=== PATIENT | male | born 1945 | race Caucasian/White ===

== ENCOUNTER 2018-08-14 14:42 | Inpatient (IN) | payer OTHER ==
[~2018-08-14] VITALS: Ht 180.3 cm; Wt 70.3 kg
[~2018-08-14 14:42] MED LIST: ACETAMINOPHEN325 M1 PO; ASPIRIN81 M2 PO; CARAFATE 1 GM TA1 GM PO; FLOMAX0.4 MG PO; LIPITOR 20 MG T20 M1 PO; MULTIVITAMINS1 EAC7 PO; NICOTINE TRANSD21 M1 TRANSDERM; NORVASC10 MG PO; PERCOCET 7.5-31 EACH PO; PROTONIX40 M1 PO; PROZAC20 MG PO; VITAMIN B-1100 M1 PO; ZOFRAN ODT4 MG PO
--- NOTE | 2018-08-14 19:09 | NUR ---
PT ARRIVES TO FLOOR VIA CART ACCOMPNIED BY AMBULANCE STAFF FROM [facility]. PER REPORT FROM NURSING STAFF PT HAS BEEN ON MED SURGICAL UNIT AT [facility] SINCE July FOR ACUTE ETOH DETOX-DOES HAVE REPORTED HX OF HTN-BP ELEVATED UPON ADMIT AT [id number] R-16 TEMP 98.4. GAIT IS STEADY WITHOUT ASSISTVE DEVICES. COMPLIENT AND COOPERATIVE DURING INITAL VS AND SIGNING OF CONSENTS. ABLE TO GIVE RELEVENT HX AND IS ORIENTED X4. DOES APPEAR UNKEMPT-HAIR UNCOMBED AND SOILED HOSPITAL GOWN. DENIES SI/SH/HI. NONOTED OR REPORTED PSYCHOSIS,ACUTE ANXIETY. STATES HE IS BECOMING MORE "HOPELESS" THAT HE WILL EVER BE ABLE TO QUIT DRINKING. STATES IS SUPPORTIVE AND HE WILL CELEBRATE 50TH FRIDING ANNIVERSARY THIS YEAR.ORIENTED TO ROOM AND UNIT-BELONGINGS INVENTORIED AND CONSENTS SIGNED-REPORT GIVEN TO UNCOMING SHIFT
--- NOTE | 2018-08-14 20:52 | NUR ---
ASSUMED CARE @ 1900, AMBULATES AD SALVADOR BETWEEN DAY ROOM AND BEDROOM. WANTS TO TALK TO , ASSISTED WITH PLACING THE CALL, GOT ANSWERING MACHINE. PATIENT SECURITY CODE AND OUR PHONE NUMBER LEFT FOR . ORDERS OBTAINED.
--- NOTE | 2018-08-14 23:35 | NUR ---
ASSESSMENT COMPLETE WITH PT COOPERATION. WORKING A CROSSWORD PUZZLE. A&OX3-4. HRRR, LUNGS DIMINISHED, ABD NORMOACTIVE. REPORTS GOOD APPETITE, AND BM YESTERDAY ON 08/13. DENIES SI AND HI. REPORTS THAT HAS FEELING OF HOPELESSNESS ABOUT BEING ABLE TO QUIT ALCOHOL USE. HS MEDS PROVIDED INCLUDING TYLENOL 650 FOR GENERAL AND BACK PAIN OF 05/03. FOLLOWUP PAIN ASSESSMENT 04/05, ONLY SLIGHT RELIEF NOTED. WILL CONTINUE TO MONITOR.
--- NOTE | 2018-08-15 06:18 | NUR ---
TRAZODONE HCL 25 MG PO GIVEN @ 23:00 FOR INSOMNIA, AND OLANZAPINE 2.5 MG PO FOR AGITATION Q4 HOUR. WAS NOT ABLE TO SLEEP, DOING WORD PUZZLES IN THE DAY ROOM. @ 00:15 PT REQUESTED TRAZODONE 25 MG X1 SECOND DOSE IF NOT ASLEEP, WHICH WAS PROVIDED. PT DECLINED OXYCODONE7.5 /325, SAYING THAT HE WAS WORRIED ABOUT ADICTION TO OXY. SAID THAT HE GOT A BIT OF RELIEF FROM THE TYLENOL. PS 3/10 REDUCED TO 2/10. BACK AND GENERAL PAIN REPORTED. WILL CONTINUE TO MONITOR Q12 MINUTES FOR PATIENT SAFETY.
[2018-08-15 08:00] VITALS: BP 130/78
--- NOTE | 2018-08-15 09:00 | NUR ---
PT UP AD SALVADOR TODAY IN DINNING ROOM. PT DENIES ANY HEADACHE OR TREMORS. PT DENIES ANY NAUSEA. TOLERATED BREAKFAST. PT SOCIAL. HARD OF HEARING DUE TO WORKING ON [employer] FOR 37 YEARS. PT HAS SMOKED CIG. FOR 55 YEARS 2 PACKS. PT STATED HE ONLY STARTED DRINKING 3 YEARS AGO. NO RESP ISSUES.
[2018-08-15 14:49] VITALS: BP 130/78
--- NOTE | 2018-08-15 16:00 | NUR ---
CAME TO SEE PT. BROUGHT CLOTHES FOR HIM TO WEAR. PT PLEASANT TODAY. TAKING PO MEDS WITHOUT ISSUES. PT UP AD SALVADOR WITH STEADY GAIT.
[2018-08-15 20:08] VITALS: BP 105/68
[2018-08-15 23:25] VITALS: BP 105/68
--- NOTE | 2018-08-16 00:26 | NUR ---
PATIENT CAME OUT TO NURSE STATION TONMAHNAZ AND STATES HE CAN'T SLEEP. TRAZADONE 25MG PRN GIVEN FOR SLEEPLESSNESS. MAY GIVE HIM THE OTHER 25MG TRAZADONE IN ONE HOUR IF NEEDED FOR SLEEP. NO OTHER COMPLAINTS. WILL CONTINUE TO MONITOR.
[2018-08-16 08:30] VITALS: BP 122/80
--- NOTE | 2018-08-16 09:30 | NUR ---
PT UP THIS AM FINISHED BREAKFAST. PT DENIES ANY PAIN. PT SHOWERED YESTERDAY. PT DOESN'T ENGAGE IN CONVERSATION WITH ANYONE UNLESS SPOKEN TOO. PT VERY COOROPERATIVE AND COMPLIANT.
--- NOTE | 2018-08-16 17:44 | NUR ---
NO COMPLAINTS TODAY, ATTENDING GROUP AND TAKING PO MEDS.
[2018-08-16 19:39] VITALS: BP 148/88
[2018-08-17 01:59] VITALS: BP 148/88
--- NOTE | 2018-08-17 02:19 | NUR ---
PATIENT WAS IN DAYROOM WHEN THIS NURSE CAME ON SHIFT. HIS ASSESSMENT WAS WNL EXCEPT THAT HE IS CONCERNED ABOUT SLEEPING AT NIGHT AND ALSO HIS BOWELS HAVE NOT MOVED FOR NOW 4 DAYS. REASSURED PATIENT THAT I WOULD GIVE HIM 1/2 A TRAZADONE WITH HIS HS MEDS TO HELP WITH SLEEP AND HE COULD HAVE THE OTHER 1/2 IF IT WASN'T EFFECTIVE. BOWEL SOUNDS HYPOACTIVE AND ABDOMEN FIRM. PATIENT GIVEN 2 PRUNE JUICES TO DRINK AND WATER. PT UP WALKING THE UNIT AROUND 2200. NEW ORDERS RECEIVED WHEN I SPOKE WITH ROSALIE ELLIS MILL TENDER SECOND OPERATOR WHEN SHE CALLED THE UNIT. SENNA PLUS 1 BID AND MIRALAX Q 12HR PRN CONSTIPATION. PATIENT SLEEPING AT THIS TIME SO WILL START IN THE MORNING. PATIENT ALSO ENDED UP TAKING BOTH 1/2 DOSES OF TRAZADONE FOR SLEEP.
[2018-08-17 07:58] VITALS: BP 113/78
--- NOTE | 2018-08-17 16:30 | NUR ---
PATIENT ALERT AND ORIENTED AND COOPERTIVE WITH TREATMENT PLAN AND PARTICIPATES IN GROUP THERAPY. PATIENT IS UP AD SALVADOR.
[2018-08-17 20:07] VITALS: BP 108/72
--- NOTE | 2018-08-18 00:18 | NUR ---
NURSES NOTE - ASSUMED CARE AT 1900, UPON ASSESSMENT PATIENT IN DAY ROOM INTERACTING WITH A SELECT GROUP OF PEERS. APPEARS WITH A FLAT AFFECT, BUT BRIGHTENED WHEN INTERVIEWED BY THIS NURSE. HE DENIES SI HI WELL ANXIETY AND DEPRESSION AT TIME OF ASSESSMENT. HE SHOWS NO S/S OF WITHDRAWAL, BUT WILL MONITOR CLOSELY. AT THIS TIME HE IS CURRENTLY IN BED WITH EYES CLOSED RR EVEN AND UNLABORED. NO S/S OF PAIN. WILL CONTINUE TO MONITOR AND MAINTAIN ALL PRECAUTIONS TO ENSURE SAFETY AT ALL TIMES.
[2018-08-18 08:17] VITALS: BP 117/71
--- NOTE | 2018-08-18 10:56 | NUR ---
[id number]: Report rec from [facility] shift, care assumed. Ambulatory in halls and to DR, oriented to name, place and time. Denies pain or discomfort, skin w/d, color pink.Takes meds w/o difficulty, feeds self, appetite good, consumed 100% of meal.
[2018-08-18 20:14] VITALS: BP 132/67
--- NOTE | 2018-08-18 23:28 | NUR ---
NURSES NOTE - ASSUMED CARE AT 1900. PATIENT IS ALERT AND ORIENTED X4 IN THE DAY ROOM PLAYING A CROSSWORK MINIMALLY INTERACTING WITH OTHER PEERS. THIS NURSE SAT DOWN WITH PATIENT AND HAD A ONE TO ONE LONG CONVERSATION WITH PATIENT. HE REPORTS TO THIS NURSE 'IM FEELING GOOD.' HE DENIES ANY FEELINGS OF WITHDRAWAL AND REPORTS 'IM NOT FEELING DEPRESSED ANYMORE NOW THAT IM OFF OF THE BOOZE.' HE REPORTS WHAT THE PHYSICIAN TOLD HIM THIS AFTERNOON REGARDING REHAB OR NOT. HE STATES 'I WAS GOING TO THINK ABOUT REHAB, BUT THEN THE DOCTOR SAID IT COULD BE RELATED TO MEMORY LOSS AND REHAB MAY DO NO GOOD.' HIS SPEACH IS LINEAR AND GOAL ORIENTED IN CONVERSATION. HE REPORTS GOOD SLEEP DUE TO NEW MEDICATION REGIMEN OF TRAZODONE X2 STATING 'I HAVENT SLEEP THAT GOOD IN AGES.' HE ALSO RECOUNTS THE FEW MEMORIES HE HAD WHEN HE ENDED UP AT [facility] AND THE REGRET HE HAS. HE WILL NOT OVERTLY STATE HE WOULD LIKE TO DISCHARGE, BUT IN ACTIONS AND TONE OF VOICE HE IS LOOKING FORWARD TO DISCHARGE. THIS NURSE AND PATIENT DISCUSSED THE DANGERS OF RELAPSE AND ENSURING HE HAS SYSTEMS IN PLACE TO HELP HIM WHICH HE AGREED. HE DENIES SI HI WELL HALLUCINATIONS STATING 'HECK NO I HAVE NEVER HAD HALLUCINATIONS.' WILL CONTINUE TO MONITOR MOOD, BX, AND S/S OF WITHDRAWAL. NURSING WILL MAINTAIN ALL PRECAUTIONS TO ENSURE SAFETY AT ALL TIMES.
[2018-08-19 08:00] VITALS: BP 126/74
--- NOTE | 2018-08-19 09:30 | NUR ---
PT UP AT THIS TIME. PT STATED HE SLEPT GOOD. PT LUNGS CLEAR AND ON ROOM AIR. PT STATED HE WOULD LIKE A SHOWER TODAY. PT HS NO SIGNS OF TREMORS OR HEADACHE. PT DENIES ANY PAIN. PT COMPLIANT WITH MEDS.
--- NOTE | 2018-08-19 10:00 | NUR ---
PT STATED HE WOULD LIKE TO GET HIS TESTING DONE IN ORDER TO BE ABLE TO GO HOME.
--- NOTE | 2018-08-20 04:58 | NUR ---
PT RESTING GOOD, CONTINENT OF B/B, NO BM PASSED, TOOK MEDS WITH NO ISSUES, VERY QUIET LAST NOC WATCHING THE TV, HE WAS THE LAST ONE WHO WENT TO BED, MONITORED.
[2018-08-20 08:11] VITALS: BP 108/65
--- NOTE | 2018-08-20 14:14 | NUR ---
ASSUMED PT CARE AT 0700. PT AWAKE AND READY FOR BREAKFAST. FLAT AFFECT, ATTENDING ALL GROUPS. AMBULATES SELF IN [place]. VSS. WILL CONT POC.
[2018-08-20 19:29] VITALS: BP 125/79
--- NOTE | 2018-08-21 01:14 | NUR ---
NURSES NOTE - ASSUMED CARE AT 1900, PATIENT IS ALERT AND ORIENTED X4, HE WALKS WITH A STEADY GAIT, HE IS CALM AND COOPERATIVE, FOLLOWS DIRECTIONS WHEN ASKED. HE HAS BEEN UP IN THE DAY ROOM INTERACTING WITH OTHERS, BUT MINIMALLY. ONE TO ONE HE MAKES HIS NEEDS KNOWN. HE CONTINUES TO REPORT TO THIS NURSE THAT HE IS LESS DEPRESSED SINCE QUITTING ETOH. HE DENIES SI HI WELL HALLUCINATIONS. HE DENIES MEDICAL CONCERNS WITH NO S/S OF DISTRESS. LAST BM WAS T-1. NURSING WILL MAINTAIN PRECAUTIONS TO ENSURE SAFETY AT ALL TIMES.
[2018-08-21 07:07] LABS: HEMATOCRIT 38.6 % (42.0-52.0); MCH 32.1 pg (26.0-34.0); MCHC 33.6 g/dL (28.0-37.0); MCV 95.6 fL (80.0-100.0); RBC 4.04 mil/uL (4.50-6.00); RDW 19.1 % (10.5-14.5); WBC 5.4 thou/uL (4.0-11.0)
[2018-08-21 07:12] LABS: CALCIUM 8.9 mg/dL (8.5-10.1); POTASSIUM 4.1 mmol/L (3.5-5.1)
--- NOTE | 2018-08-21 08:00 | NUR ---
0730: Report rec from noc shift, care assumed. Ambulatory in halls and to DR, gait steady, oriented to name, place and time. Mood is cheerful, cooperative with staff, sits quietly watching TV.
[2018-08-21 08:47] VITALS: BP 123/83
[2018-08-21] MEDS ORDERED: SENNA-TIME S T1 EACH PO (09:22)
[2018-08-21] MEDS ORDERED: REMERON15 MG PO (09:22)
[2018-08-21] MEDS ORDERED: CARAFATE 1 GM TA1 G1 PO (09:24)
--- NOTE | 2018-08-21 11:50 | NUR ---
PSYCHOSOCIAL ASSESSMENT Diagnosis: MAJOR NEUROCOGNITIVE D/O, ETOH Admit Date: 08/14/18 Psychiatrist: ELAINE Symptoms associated with current admission: Activity level change Alcohol/drug use Presenting problems: Pt stated that he had drunk alcohol, and was not able to wake up for 8 days. Pt stated that he dealing with Depression. Precipitating Factors: Non-compliance psychothx Alcohol/drug use Comments: Pt stated that he like the way alcohol make him feels. History of High Risk Behavors: Other Suicide Risk Factors: E A-Signs of alcohol/substance abuse w/ suicide ideation B-Recent suicidal thoughts or attempts C-Recent thoughts or attempts of harming someone else D-Altered mental status due to psychiatric/chem dep etiology E-The behavior exists - add comment PSYCHIATRIC HISTORY Age of onset: 73 Prior hospitalizations: Denies hx hospitalization Hospital names and dates, if available: Most Recent Outpatient HX: Counselor/Case Management Additional information: Legal Status: Voluntary Guardian/Conservatorship type: Contact name: Contact phone: Other: Name: Phone: Other legal issues: (Arrests/convictions Current Status) Pt was arrested for Unlawful use of Firearm P.O. Name and Phone #: FAMILY HISTORY Place of : [place], [place] Raised in: [place] # Siblings & order: pt had on brother, oldest Describe relationships within family of origin: Pt stated that he was close with his brother. Pt mention that he loss his brother in due to cancer. Pt mention that he was unable to cope with his brother . Any psychiatric or substance abuse problems within family of origin: Y Has patient been sexually or physically abused, neglected or been taken advantage of financially? N Has the abuse been reported? N Other pertinent family information: Marital history/significant relationships: Domestic violence: N Children ages & who is caring for them: Pt has 3 adult children Is child welfare involved? N Drug history: Alcohol Alcohol Use: Yes, current Frequency: Daily Quantity: [place] pint Have you ever felt you ought to Cut down on drinking? Have people Annoyed you by criticizing your drinking? Have you ever felt bad or Guilty about your drinking? Have you ever had a drink first thing in the morning to steady your nerves/get rid of a hangover(Eye cut pressman) CAGE TOTAL 5 If CAGE score is 3 or more, notify provider for withdrawal orders! AXIS SCREENING TOOL Hiawatha I Mood Disorders: Depression Hiawatha II Personality/Mental Retardation: Hiawatha III Medical Impairment: HTN Other Hiawatha IV Problem(s) with: Health care services Other psych/environ prob Hiawatha V: 40-Major impairment Additional Hiawatha comments: PERSONAL BACKGROUND Relevant cultural issues (ethnicity, values, beliefs, spiritual): No Spiritual Catholic: Importance of sikhism to patient: Unmet spiritual needs What hobbies/interests does the patient have? photography Target shooting Sexual orientation (relevant impact to current treatment): Heterosexual : Where did you serve: Branch of service: [employer] Rank: E5 Discharge status: Honorable Are you a combat ? N Occupational/Work: Do you work? N Do you want to work? N How many hours do you work/week? 0 How many jobs have you had in the past 5 years? 0 Do you need assistance finding a job? N Does the patient need assistance in job training? N Source of income: Other Does patient have a Payee? Y Payee name: Kady Benoit Approximate monthly income: 5000 Does patient have adequate funds for next 30 days? Y Education background: High school diploma Highest grade completed: 12th grade Other Educational/training programs: Functional deficits: None Explain functional deficits: Current living situation: House/apartment Address/phone where pt. is living: Pt lives in [place], [place] Does the patient plan to continue there after DC? Yes Patient lives with: Spouse Will family/significant other be involved in treatment? Other community support services utilized: pt will need to continue care with psychiatrist Support System Available (family/friend) Name: Phone: Relationship: Name: Phone: Relationship: Name: Phone: Relationship: Patient strengths: Family support Motivated Insight Patient's assets: Positive marriage Good self care Verbal Patient's weaknesses: Health problems Chronic hx mental illness Additional weaknesses: Pt stated he give up drinking. Patient's perception of current executive secretary social welfare/case management needs: Pt stated that CM is someone who is the doctor with care. PRELIMINARY DISCHARGE PLAN Discharge plan/Community resource contacts: PT will d/c home with his Discharge needs: Pt will need to see a psychiatrist at [facility] Problems anticipated on discharge: Compliance w/ med regimen Comments: (factors affecting DC plan/pt. response/interventions) SW schedule appointment with [facility] [[email or web address] Mental Health.
--- NOTE | 2018-08-21 11:53 | NUR ---
Patient Name: TANVI WALKER Admission Date: 08/14/18 DISCHARGE PLAN: Pt will be d/c home with . Care Assessment: Pt was assessed by Dr. 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 DISCHARGE TO FACILITY: Home Facility: Phone: Fax: Address: Contact Name: Phone: PCP: [facility]ME Psychiatrist: [facility] on August 25, 2018 at 10:00am .
[2018-08-21 11:56] VITALS: BP 123/83
--- NOTE | 2018-08-24 08:00 | D ---
[facility] [place] [address] DISCHARGE SUMMARY Name: TANVI WALKER Room #: 528B-B [facility] IN M.R.#: [id number] Admission: 08/14/18 ������������������ Attend Phys: Anurag Campo DO Discharge: 08/21/18 ������������������ Date of : 47 Report #: [id number] THIS REPORT FOR: //name// CC: Anurag Campo Georgette Petra DATE OF SERVICE: 08/21/2018 MEDICAL CONSULTANTS: In this admission is Dr. Binh Dempsey. 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 Other medical comorbidities include alcoholic gastritis, hypertension, urinary retention, and unspecified depressive disorder. DISCHARGE DIET: Regular with Ensure Enlive supplements twice a day. ACTIVITY LEVEL: As tolerated. No alcohol, no illicit drugs. The patient also has tobacco use disorder. Advised strongly against smoking due to damage. Of note, his functional cognitive assessment was 21/30 in this admission. The neuropsychologist was unable to test him while he was inpatient. However, he does have it already scheduled with [facility] on 09/24/2018. Psychiatric followup will be with [facility]. Recommend supportive counseling. I do think at present, he is too cognitively impaired for an addiction program. DISCHARGE MEDICATIONS: Mirtazapine 7.5 mg p.o. at bedtime for sleep and appetite, senna-S 1 tab p.o. b.i.d. for bowel motility, sucralfate 1 gram p.o. a.c. and at bedtime, to be reevaluated in 2 weeks for gastritis, pantoprazole 40 mg p.o. b.i.d. for GERD, multivitamin p.o. daily, fluoxetine 20 mg p.o. daily for depression, amlodipine 10 mg p.o. daily for hypertension, aspirin 81 mg p.o. daily for cardiac protection, and atorvastatin 20 mg p.o. at bedtime for hyperlipidemia. REASON FOR ADMISSION: He was at [facility] for complicated alcohol withdrawals for about a week, was still showing significant cognitive impairments and transferred for further evaluation to the [facility]. HOSPITAL COURSE: The patient tolerated the hospitalization well. He was fairly open about his drinking. He supposedly had a chemical dependency admission with Dr. Juan Almonte, [facility] in March of this year. We were unable to obtain records; however, this remains likely given that he has been on number of treatment programs. Interestingly, his alcoholism only dates back about 3 years. Significant laboratories done at [facility]; CBC showed [facility] [address] [place] [address] DISCHARGE SUMMARY Name: DENISETANVI Room #: 528B-B DIS IN M.R.#: [id number] Admission: 08/14/18 ������������������ Attend Phys: Anurag Campo DO Discharge: 08/21/18 ������������������ Date of : 47 Report #: [id number] white count 5.4 and H and H 13.0 and 38.6, and platelet count 338. Chemistries showed a vitamin D level slightly low at 21.2, calcium 8.9, glucose 95, estimated GFR 74, creatinine 1.0, BUN 17, anion gap 8, carbon dioxide 28, chloride 107, potassium 4.1, and sodium 143. The patient takes vitamin D3 supplements, so I asked nursing staff to call him tomorrow for that request. MENTAL STATUS EXAMINATION: Normal gait and station. This is a well-developed, well-nourished male, appearing stated age. Attention intact. Concentration intact. Speech is normal in rate and volume. Thought processes linear and goal oriented. Thought content focused on sobriety. Mood and affect; mood euthymic and fair range. Denies SI or HI. Denies hopeless, helplessness. Memory not formally tested on discharge. Insight limited. Judgment fair. Fund of knowledge, no greater than average. Prognosis for this patient is guarded. ��������������������������������������������� <ELECTRONICALLY SIGNED> ���������������������������������������� By: Anurag Campo DO ��������������������������������������������� 08/24/18 0800 [id number] Anurag Campo DO /nt
== END 2018-08-21 13:20 | disposition home or self-care (01) | DRG 885 ==
LOC: SBH
PROVIDERS: Hospitalist; ADMIT Psychiatry & Neurology Psychiatry
DX: F39 Unspecified mood [affective] disorder (principal); G93.40 Encephalopathy, unspecified; F01.51 Vascular dementia, unspecified severity, with behavioral disturbance; F10.10 Alcohol abuse, uncomplicated; I10 Essential (primary) hypertension; E78.5 Hyperlipidemia, unspecified; K21.9 Gastro-esophageal reflux disease without esophagitis; K29.20 Alcoholic gastritis without bleeding; R33.9 Retention of urine, unspecified; G47.00 Insomnia, unspecified; Z79.82 Long term (current) use of aspirin; Z79.899 Other long term (current) drug therapy
CPT/HCPCS: 10880